=== PATIENT | female | born 1970 | race Caucasian/White ===

== ENCOUNTER 2016-10-30 12:05 | Emergency (ER) | payer MEDICAID ==
[~2016-10-30] VITALS: Ht 157.5 cm; Wt 81.6 kg
[~2016-10-30 12:05] MED LIST: ALBUTEROL-200 PUFFS/ IH; LEVAQUIN 750 M750 MG PO; MEDROL 4MG. DOSE4 MG PO; MUCINEX ER600 MG PO; PROMETHAZI6.25 MG/1 PO
--- NOTE | 2016-10-30 12:23 | Urgent Treatment Center Report ---
History of Present Issue Date/Time Seen by Provider 10/30/16 1216 Visit Reason Pt arrived:Walked Presenting Problem:LEFT KNEE SWOLLEN SINCE YESTERDAY NO KNOWN INJURY Location if Accident: Onset of symptoms date/time:/ or onset unknown for:MEDICAL HX UNKNOWN Have you (or family members/close friends) recently traveled outside the [place]? N If Yes, where/when: Have you had exposure to infectious disease within the past month? TB? Other? Specify: Patient state that she noticed some swelling in her left knee that started yesterday states that she walks alot and not sure if she may have twisted it or not. States that today welling has continued and it was painful to walk on so she came in States that last night she elevated it and placed ice on it but it hasn't helped ALLERGIES Coded Allergies: No Known Allergies (01/27/16) Home Medications Reported Medications No Known Home Medications History Medical History General CAD? No Angina: No UT: No Hypertension? No Hyperlipidemia? No CHF? No DVT? No PE? No COPD? No Asthma? No Anemia? No GERD? No Gastric ulcers? No GI Bleed? No Hernia? No Thyroid Problems? No Hypothyroidism? No CVA? No Seizures? No Diabetes? No Renal Insuffiency? No UTI? No Stones? No GB Disease: No Nephritic Syndrome? No Asplenia? No Hepatitis? No Sickle Cell Disease? No Arthritis? No Migraines? No Cataracts? No Glaucoma? No MRSA? No HIV? No TB? No Anxiety? No Depression? No Cancer? No Immunization HX DT/Tetanus Unknown Surgical Hx Previous Surgery?Y WISDOM TEETH Social History Smoking Hx Smoker: Former Smoker Tobacco: Yes Type Cigarettes Packs/day < 1 Pack Alcohol Alcohol: No Review of Systems All Other Systems Reviewed and Negative Musculoskeletal other (left knee pain) Physical Exam Vital Signs Vital Signs Date Time Temp Pulse Resp B/P Pulse O2 O2 Flow FiO2 Ox Delivery Rate 10/30 1209 98.2 107 16 166/100 98 General Appearance normal appearance, WD/WN, no apparent distress Respiratory Status Yes: trachea midline, chest symmetrical, non tender chest. No: respiratory distress. Cardiovascular normal exam, regular rate/rhythm, no peripheral edema, no gallop Extremities pain and swelling in left knee area, no bruising good pulses and good cap refill Neurologic alert, packer operator automatic II-XII nml as tested, normal exam, no motor/sensory deficits, oriented x 3 Medical Decision Making LABS/Meds/Orders Pt receiving controlled substance in ED? No Results/Orders Orders Procedure Date/time Status [facility] [[email or web address] STABILIZE JOINT/AREA 10/30 1310 Active XRAY/CT/US XRAY/CT/US XRAY knee XR interpretation by discussed w/radiologist Xray Results no fracture seen, arthritis. effusion Comment Referral to Ortho Progress [facility] [[email or web address] Progress Notes Date 10/30/16 Time 1305 Departure Departure Time of Disposition 1307 Disposition DC Home or Self Care(routine) Clinical Impression Primary Impression: Knee effusion, left Condition STABLE Referrals Kalyan Lam MD (Family): 1 Day-Call Office LEE JOHNSON, BELLA SANDERSON Patient Instructions DI for Knee Effusion, How to Use Crutches Additional Instructions *weight bearing as tolerated *RICE, Rest the extremity, Ice 15-20 minutes 3-4 times daily, Compress- wear the jono wrap as discussed as much as possible to help reduce swelling and pain, Elevate the extremity when at rest *Jono wrap is for support and help control swelling, use it except in the shower. Be sure that is not to tight but not to loose either *Elevate when resting *Ibuprofen 600-800mg every 6-8 hours as needed for pain an inflammation. If need something more can take Tylenol in between doses of Ibuprofen to help Immediately follow up for new or worsening of symptoms, or no noticeable improvement over the next 3-[address] Perez on WednesdayNovember 04 at 1:00pm Follow up with family doctor for additional treatment Discharge Counseling Counseled pt/family regarding diagnosis, test results, medications/RX, home care, follow up needs Prescriptions Current Visit Scripts Ibuprofen (Ibuprofen 800MG) 800 MG PO QIDP PRN pain #30 TAB at 9121
--- NOTE | 2016-10-30 12:23 | Urgent Treatment Center Report ---
History of Present Issue Date/Time Seen by Provider 10/30/16 1216 Visit Reason Pt arrived:Walked Presenting Problem:LEFT KNEE SWOLLEN SINCE YESTERDAY NO KNOWN INJURY Location if Accident: Onset of symptoms date/time:/ or onset unknown for:MEDICAL HX UNKNOWN Have you (or family members/close friends) recently traveled outside the [place]? N If Yes, where/when: Have you had exposure to infectious disease within the past month? TB? Other? Specify: Patient state that she noticed some swelling in her left knee that started yesterday states that she walks alot and not sure if she may have twisted it or not. States that today welling has continued and it was painful to walk on so she came in States that last night she elevated it and placed ice on it but it hasn't helped ALLERGIES Coded Allergies: No Known Allergies (01/27/16) Home Medications Reported Medications No Known Home Medications History Medical History General CAD? No Angina: No CT: No Hypertension? No Hyperlipidemia? No CHF? No DVT? No PE? No COPD? No Asthma? No Anemia? No GERD? No Gastric ulcers? No GI Bleed? No Hernia? No Thyroid Problems? No Hypothyroidism? No CVA? No Seizures? No Diabetes? No Renal Insuffiency? No UTI? No Stones? No GB Disease: No Nephritic Syndrome? No Asplenia? No Hepatitis? No Sickle Cell Disease? No Arthritis? No Migraines? No Cataracts? No Glaucoma? No MRSA? No HIV? No TB? No Anxiety? No Depression? No Cancer? No Immunization HX DT/Tetanus Unknown Surgical Hx Previous Surgery?Y WISDOM TEETH Social History Smoking Hx Smoker: Former Smoker Tobacco: Yes Type Cigarettes Packs/day < 1 Pack Alcohol Alcohol: No Review of Systems All Other Systems Reviewed and Negative Musculoskeletal other (left knee pain) Physical Exam Vital Signs Vital Signs Date Time Temp Pulse Resp B/P Pulse O2 O2 Flow FiO2 Ox Delivery Rate 10/30 1209 98.2 107 16 166/100 98 General Appearance normal appearance, WD/WN, no apparent distress Respiratory Status Yes: trachea midline, chest symmetrical, non tender chest. No: respiratory distress. 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 No Results/Orders Orders Procedure Date/time Status [facility] STABILIZE JOINT/AREA 10/30 1310 Active XRAY/CT/US XRAY/CT/US XRAY knee XR interpretation by discussed w/radiologist Xray Results no fracture seen, arthritis. effusion Comment Referral to Ortho Progress [facility] Progress Notes Date 10/30/16 Time 1305 Departure Departure Time of Disposition 1307 Disposition DC Home or Self Care(routine) Clinical Impression Primary Impression: Knee effusion, left Condition STABLE Referrals Kalyan Lam MD (Family): 1 Day-Call Office LEE JOHNSON, BELLA SANDERSON Patient Instructions DI for Knee Effusion, How to Use Crutches Additional Instructions *weight bearing as tolerated *RICE, Rest the extremity, Ice 15-20 minutes 3-4 times daily, Compress- wear the jono wrap as discussed as much as possible to help reduce swelling and pain, Elevate the extremity when at rest *Jono wrap is for support and help control swelling, use it except in the shower. Be sure that is not to tight but not to loose either *Elevate when resting *Ibuprofen 600-800mg every 6-8 hours as needed for pain an inflammation. If need something more can take Tylenol in between doses of Ibuprofen to help Immediately follow up for new or worsening of symptoms, or no noticeable improvement over the next 3-[address] Perez on WednesdayNovember 04 at 1:00pm Follow up with family doctor for additional treatment Discharge Counseling Counseled pt/family regarding diagnosis, test results, medications/RX, home care, follow up needs Prescriptions Current Visit Scripts Ibuprofen (Ibuprofen 800MG) 800 MG PO QIDP PRN pain #30 TAB at 8469
--- NOTE | 2016-10-30 13:08 | RADIOLOGY REPORT PS360 ---
KNEE-3 VIEWS-LT HISTORY: Left knee pain following injury. Pain and swelling FALL ORDERING PHYSICIAN: CAROLINE SELLERS APRN PATIENT AGE: 46 years COMPARISON: None FINDINGS: There are mild osteoarthritic changes of the medial compartment. No fracture or dislocation evident. Increased density is present in the suprapatellar region consistent with knee joint effusion. 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
[2016-10-30] MEDS ORDERED: IBUPROFEN800 MG PO (13:12)
[2016-10-30 13:23] VITALS: BP 166/100
== END 2016-10-30 13:24 | disposition home or self-care (01) ==
LOC: UTC 12:05
DX: M25.462 Effusion, left knee (principal); Z72.0 Tobacco use

== ENCOUNTER → 2016-12-25 | Outpatient (CLI) | payer MEDICAID ==
[~2016-12-25] MED LIST changes: +IBUPROFEN800 MG PO
--- NOTE | 2016-12-25 17:52 | RADIOLOGY REPORT PS360 ---
MRI-LOW EXT ANY JOINT W/O-LT HISTORY: Left knee pain greater along the medial aspect with limited range of motion. EFFUSION, LEFT KNEE ORDERING PHYSICIAN: BELLA HOWARD MD PATIENT AGE: 46 years COMPARISON: Radiograph of 10/30/2016 which suggested a knee joint effusion and mild osteoarthritis TECHNIQUE: Standard multiplanar multiecho sequences are performed without contrast. FINDINGS: The cruciate ligaments are intact as are the collateral ligaments, patellar tendon, and quadriceps tendon. There is abnormal signal intensity within the posterior horn of the medial meniscus consistent with a complex tear having both a longitudinal and horizontal component. A radial tear is also suspected along the posterior aspect of the posterior horn of the medial meniscus toward the central aspect of the meniscus The lateral meniscus has an unremarkable appearance. There is a small knee joint effusion. There is some irregularity of the patellar cartilage with mild thinning of the patellar cartilage consistent with chondromalacia patella. There are mild osteoarthritic changes of the medial compartment and patellofemoral joint. There is mild diffuse increased T2 signal involving the medial aspect of the medial femoral condyle. In the absence of trauma, avascular process is considered. Contusion also a consideration. No osteonecrosis evident. IMPRESSION: 1. Complex nondisplaced tear involves posterior horn of the medial meniscus. 2. Chondromalacia patella. 3. Bone marrow edema involves the medial aspect of the medial femoral condyle and may be due to avascular necrosis or a bone bruise. 3. Osteoarthritis with small knee joint effusion
== END ==
LOC: RAD 07:45
DX: M25.462 Effusion, left knee (principal)